=== PATIENT | female | born 1975 | race Hispanic/Latino ===

== ENCOUNTER 2016-03-31 23:31 | Inpatient (IN) | payer MEDICAID ==
[~2016-03-31] VITALS: Ht 157.5 cm; Wt 68.0 kg
[~2016-03-31 23:31] MED LIST: PNV1TABL57 PO
[2016-03-31] MEDS ORDERED: Lactated Ringer's 1,000 ML IV PRN ×2 (23:54→23:59)
[2016-03-31] MEDS ORDERED: fentaNYL-PF 50 mCg/mL 2 mL Inj IVPUSH PRN (23:55)
[2016-03-31] MEDS ORDERED: Sodium Chloride LOK Flush 10 mL Syringe IVFLUSH PRN (23:55)
[2016-03-31] MEDS ORDERED: Oxytocin 30 Units/500 mL LR 30 UNITS in IV Premix 1 EACH IV PRN (23:55)
[2016-03-31] MEDS ORDERED: Hemorrhage Kit, Post Partum XX ONE (23:55)
[2016-03-31] MEDS ORDERED: Methylergonovine 0.2 mg/mL Inj IM PRN (23:55)
[2016-03-31] MEDS ORDERED: Ondansetron 2 mg/mL 2 mL Inj IVPUSH PRN (23:55)
[2016-03-31] MEDS ORDERED: Oxytocin 10 Unit/mL Inj IM PRN (23:55)
[2016-03-31] MEDS ORDERED: Carboprost 250 mCg/mL Inj IM PRN (23:55)
--- NOTE | 2016-04-01 00:04 | PCM.HPOB ---
Subjective Date of Service: Mar 31, 2016 Referring Provider: Admitting Physician: Gigi Vigil MD Primary Care Physician: Mile Kohli MD Attending Physician: Gigi Vigil MD Chief Complaint Contractions and leaking fluid. History of Present History of Present Illness 40 Y/o at 41w 3d by GLORIA 03/21/2016 by LMP and consistent with first trimester US. Gush of fluid at 2300 (03/31/16) contractions regular . At presentation at triage room cervix 5-6 /90%. Problem list: 1. AMA, Echogenic cardiac focus, negative aneuploidy cfDNA 2. Growth 40%ile at 01/31/16 3. Desires sterilization, consent was signed 01/01/16 Past Medical History Obstetrical History: 3 without complications: 1996 , M 1999 , , F 2011 , M Gynecologic History: menarche at age 16 LMP 06/15/15 Medical History: Depression 2001 Hx Hep C test positive followed by negative test Surgical History: Gallstone /cholecystectomy 1998 Hx Tobacco Use: No Hx Alcohol Use: No Hx Substance Use: No Past Family History Family History non contributory Allergy Coded Allergies: No Known Allergies (Verified , 07/10/15) Labs/Diagnostics Additional Information A positive Varicella and Rubella immune RPR and HIV NR GC/CT negative Hep B SAg negative Hep C negative DM screen negative. GBS negative 02/19/16 OB Intrapartum Assessment/Plan Assessment 40 Y/o at 41w 3d by GLORIA 03/21/2016 by LMP and consistent with first trimester US. SROM at 2300 (03/31/16) Active labor Problem list: 1. AMA, Echogenic cardiac focus, negative aneuploidy cfDNA 2. Growth 40%ile at 01/31/16 3. Desires sterilization, consent was signed 01/01/16 Pain Management: admit with orders and labs. Chuy Benites MD Apr 01, 2016 00:04
[2016-04-01] MEDS ORDERED: LANOlin HPA 7 Gm Ointment TOPICAL PRN (00:05)
[2016-04-01] MEDS ORDERED: Hemorrhage Kit, Post Partum XX ONE ×2 (00:05)
[2016-04-01] MEDS ORDERED: Methylergonovine 0.2 mg/mL Inj IM PRN (00:05)
[2016-04-01] MEDS ORDERED: Witch Hazel-Glycerin Pads TOPICAL PRN (00:05)
[2016-04-01] MEDS ORDERED: Carboprost 250 mCg/mL Inj IM PRN (00:05)
[2016-04-01] MEDS ORDERED: Oxytocin 30 Units/500 mL LR 30 UNITS in IV Premix 1 EACH IV PRN (00:05)
[2016-04-01] MEDS ORDERED: Oxytocin 10 Unit/mL Inj IM PRN (00:05)
[2016-04-01] MEDS ORDERED: Benzocaine (Dermoplast) 20% 60 Gm Spray TOPICAL PRN (00:05)
[2016-04-01 00:06] LABS: Mean Corpuscular Volume 89.4 fL (81-100)
[2016-04-01 00:08] LABS: Mean Corpuscular Hemoglobin 31.3 pg (27.0-35.0)
[2016-04-01] MEDS: Lactated Ringer's 1,000 ML IV SCH (00:30)
[2016-04-01] MEDS: oxyCODONE-Acetamin 5-325 mg Tablet PO PRN ×5 (02:37→22:24)
--- NOTE | 2016-04-01 05:14 | OP ---
[address] [address] OPERATIVE REPORT PATIENT: STERLING MEDINA : 1975 MR#: [id number] ADMIT: 03/31/2016 JOB ID: [id number] DATE OF DELIVERY: 04/01/2016 at 0041. The placenta delivered at 0050. DELIVERY NOTE: PREOPERATIVE DIAGNOSIS(ES): 1. Intrauterine at 41 weeks and 4 days, active labor. 2. Spontaneous rupture of membrane at 2300, March 31, 2016. 3. Multiparity desires sterilization. Consent signed January 01, 2016. 4. Advanced maternal age. POSTOPERATIVE DIAGNOSIS(ES): 1. Intrauterine at 41 weeks and 4 days, active labor. 2. Spontaneous rupture of membrane at 2300, March 31, 2016. 3. Multiparity desires sterilization. Consent signed January 01, 2016. 4. Advanced maternal age. PROCEDURE: Spontaneous vaginal delivery. SURGEON: Chuy Benites MD. OUTCOME: Female in cephalic presentation. Apgars 8 and 9 at one and five minutes respectively. Weight 3888 g, equivalent to 8 pounds 9 ounces. Placenta delivered intact with a three-vessel cord. DESCRIPTION OF PROCEDURE: This is 40 years old 5, para 3-0-1-3 presented at 41 weeks and 3 days on March 31, 2016 with the spontaneous rupture of membranes at 2300. The patient presented with contractions that started at the same time of membrane rupture. At presentation in triage room the patient was grossly ruptured. The cervix was 5-6 cm dilated and 90% effaced. She progressed in labor, to be found completely dilated at 0029 on April 01, 2016 with strong urge to push. The patient pushed effectively to deliver via spontaneous vaginal delivery over intact perineum under no anesthesia. Delivered a female in cephalic presentation with no nuchal cord. The head delivered followed by the shoulders without difficulty. The was placed on the maternal abdomen. Delayed cord clamp was performed. Cord blood was obtained for blood typing. The placenta delivered spontaneously intact with three-vessel cord. Fundal massage was performed and Pitocin was started. Estimated blood loss 250 mL. Perineum was examined with no lacerations. All instrument needles and sponge counts were correct x2. and mother recovering in the delivery room. I, Chuy Benites, was present and scrubbed for the entire procedure. DEANA
[2016-04-01] MEDS: Ascorbic Acid 500 mg Tablet PO SCH ×3 (08:00→19:28)
[2016-04-02] MEDS: oxyCODONE-Acetamin 5-325 mg Tablet PO PRN ×4 (04:14→20:27)
[2016-04-02] MEDS ORDERED: Bupivacaine-MPF 0.25%/EPI 30 mL Inj ONE (07:35)
[2016-04-02] MEDS ORDERED: Sodium Citrate-Citric Acid 15 mL Solution ONE (07:37)
[2016-04-02] MEDS: Lactated Ringer's 1,000 ML IV SCH ×3 (07:47→16:01)
[2016-04-02] MEDS ORDERED: Atropine 0.4 mg/mL Inj IV PRN (07:50)
[2016-04-02] MEDS ORDERED: EPHEDrine Sulfate 50 mg/mL Inj IVPUSH PRN (07:50)
[2016-04-02] MEDS ORDERED: fentaNYL-PF 50 mCg/mL 2 mL Inj IVPUSH PRN (07:50)
--- NOTE | 2016-04-02 09:13 | PCM.DIOB ---
Obstetrical Disch Instruction Date of Service: Apr 02, 2016 Dates of Hospitalization Date of Hospital Admission Mar 31, 2016 at 23:35 Providers Admitting Physician: Gigi Vigil MD Primary Care Physician: Mile Kohli MD Attending Physician: Gigi Vigil MD Diet Discharge Diet: No restrictions Activity Discharge Activity-General: Pelvic Rest for 6 weeks, No lifting >10 pounds for 4-6 weeks Dressing and Incisional Care Hygiene: NO bathtub, hot tub or whirlpool Additional Instructions Discharge Instructions Please call with signs or symptoms of infection, severe pain, temperature greater than 100.5 degrees, worsening abdominal pain, fevers and chills, heavy vaginal bleeding filling more than a pad per hour. Follow Up Plan Follow-up appointment: Weeks (6) Call your provider for: Fever or Chills, Shortness of breath, Heavy vaginal bleeding, Red painful breasts Shruthi Sheldon MD Apr 02, 2016 09:13
[2016-04-02] MEDS ORDERED: IBUP-1827 PO (09:25)
[2016-04-02] MEDS ORDERED: DOCU-41 PO (09:25)
[2016-04-02] MEDS ORDERED: OXYC1TAB24 PO (09:25)
--- NOTE | 2016-04-02 09:50 | OP ---
[address] [address] OPERATIVE REPORT PATIENT: STERLING MEDINA : 1975 MR#: [id number] ADMIT: 03/31/2016 JOB ID: [id number] DATE OF SURGERY: 04/02/2016 PREOPERATIVE DIAGNOSIS(ES): Recent status desiring permanent sterilization. POSTOPERATIVE DIAGNOSIS(ES): Recent status desiring permanent sterilization. PROCEDURE PERFORMED: bilateral tubal ligation. SURGEON: Shruthi Sheldon MD. ANESTHESIA: Spinal. ESTIMATED BLOOD LOSS: 20 cc. FLUID REPLACEMENT: 800 cc of crystalloid. FINDINGS: Postsurgical changes on her left fallopian tube from prior ectopic . Normal appearing right fallopian tube. Dilated bowel. COMPLICATIONS: None apparent. INDICATIONS: This is a 40-year-old G 5, P 3-0-1-3 female who presented to labor and delivery in labor on April 01, 2016 with an EDC of March 21, 2016. was complicated by advanced maternal age, echogenic intracardiac focus and undesired fertility. She went on to deliver a live born female infant on April 01, 2016 and requested a sterilization on day #1. The risks, benefits, alternatives were discussed with her beforehand. She had previously signed her [address] [facility] consent in our clinic to actually proceed. DESCRIPTION OF PROCEDURE: The patient was taken to the operating room. She was placed in the dorsal supine position. She was prepped and draped in the usual sterile fashion. Under excellent spinal anesthesia, the laparotomy incision was made infraumbilically approximately 3 cm in diameter. This was brought down to the level of the fascia. The fascia was then incised in the midline and extended bluntly. She was noted to have a moderate amount of dilated bowel. The patient was then placed in Trendelenburg position and a moist lap was used to help retract the bowel. The visualization was noted to still be difficult. After looking at her left fallopian tube, it was thought that there was potentially a fallopian tube remnant despite a history of an ectopic on this side, and we then turned to the right fallopian tube. The patient was airplaned to the left. Her right fallopian tube was grasped with Azusa clamp. It was undermined using a Nahomi clamp and suture ligated with 0 plain gut. The tubal segment was then excised and sent to Pathology. The tubal stump did slip out from its suture and there was noted to be oozing from this site. So electrocautery was used to help achieve hemostasis. There was noted to be continued oozing despite this, and so the fallopian tube remnant was then grasped with a Nahomi clamp and was run with 0-Vicryl. Good hemostasis was noted following this. Attention was then turned to the left fallopian tube where it was grasped with a Azusa clamp and walked out to the fimbria and it was noted to have an intact portion segment with concern that if not removed she could conceive in the future. So this was elevated with a Azusa clamp, undermined with the Nahomi clamp and tied off with 0 plain gut suture. There was a minimal amount of oozing from this side and cautery was used to achieve hemostasis. The left portion of the fallopian tube was also sent off to Pathology. Good hemostasis was noted. Attention was then turned back to the right side to ensure that hemostasis was achieved and it was noted to be hemostatic. There was noted to be an area of erythema on the dilated bowel which was inspected closely and noted to be free of any obvious injury. The laps were then removed from the abdomen. The fascia was closed with a running nonlocking stitch of 0-Vicryl. The skin was closed with 4-0 Vicryl. Dermabond was placed on top of this. The patient tolerated the procedure well. Recovered in labor and delivery. All sponge, needle and instrument counts were correct.
[2016-04-02 10:24] LABS: Mean Corpuscular Hemoglobin 30.6 pg (27.0-35.0); Mean Corpuscular Volume 92.8 fL (81-100)
--- NOTE | 2016-04-02 10:58 | PCM.ANEP2 ---
Post Anesthesia Evaluation ASA/CMS Post Anesthesia VS in Patient's Normal Range?: Yes Resp Stable; Airway Patent?: Yes CV Function & Hydration Stable: Yes Mental Status Recovered?: Yes Pain control Satisfactory?: Yes N/V Control Satisfactory?: Yes Faraz Khanna MD Apr 02, 2016 10:58
--- NOTE | 2016-04-02 10:58 | PCM.HPANE ---
Patient Data Surgeon Admitting Provider:Gigi Vigil MD Attending Provider:Gigi Vigil MD Primary Care Physician:Mile Kohli MD Other Provider:Arnie Lugo Anesthesia Reason for Visit Active Labor ACTIVE LABOR Ht/WT & BMI Body Mass Index Allergies Coded Allergies: No Known Allergies (Verified , 07/10/15) Past Anesthesia History Anesthesia History: Denies:: Anesthesia Reactions Diabetes History Hx Diabetes?: No MRSA MRSA: No Medications Active Scripts oxyCODONE-Acetaminophen 5-325 mg 1 Each Tablet1-2 Tab PO Q4H PRN For Pain #15 TABLET Prov:Shruthi Sheldon MD 04/02/16 Ibuprofen 600 Mg [id number] Mg PO Q6H PRN For Mild Pain #60 TABLET Prov:Shruthi Sheldon MD 04/02/16 Docusate Sodium (Colace)100 Mg [id number] Mg PO DAILY #60 CAPSULE Prov:Shruthi Sheldon MD 04/02/16 Reported Medications PNV CMB#95/FERROUS FUMARATE/FA-Expunged Drug, (-Expunged Drug, Do Not Renew!)1 Each Tablet1 Each PO DAILY 11/17/11 History History of ENT Problems?: No Hx Neurologic Problems?: No Hx of GI Problems?: No Hx of Problems?: No Female Hx: Denies:: Endometriosis Pelvic Inflammatory Hx of Psycho/Social Problems?: No Hx Surgeries?: Yes (ETELVINA 4YRS AGO) Hx Any Other Health Problems?: No Other History: Positive for:: Hospitalization Denies:: Cancer Thyroid Disease History Blood Transfusions: Denies:: Blood Transfuse Reaction Blood Transfusions Hx Diabetes: No Hx Alcohol Use: NoHx Substance Use: No Smoking Status: Unknown if Ever Smoker Have You Smoked inLast 12 mo: No Stop/Bang Risk Assessment Category Category 1A: Patient has history of documented sleep apnea, and HAS NOT received any narcotic, sedative or anesthesia administration during this stay. Category 1B: Patient has history of documented sleep apnea, and HAS received any narcotic , sedative or anesthesia administration during this stay Category 2: Patient has SUSPECTED Obstructive Sleep Apnea, and HAS received any narcotic , sedative or anesthesia administration during this stay. Category 3: Patient has SUSPECTED Obstructive Sleep Apnea and HAS NOT received narcotic, sedative or anesthesia administration during this stay. Category 4: Outpatient in Procedural Areas with known sleep apnea or who screen positive for High Risk via the STOP/BANG questionnaire. Exam Exam General Appearance: Alert, Oriented X3, Cooperative, No Acute Distress HEENT/AIRWAY: MP 2, Neck Movement (FROM), Mouth Opening (3 FBMO) Lungs: Clear to Auscultation, Normal Air Movement Heart: Exam Unremarkable, Regular Rate/Rhythm, No Murmurs/Rubs/Gallops Meds/Labs/Diagnostics Admission Meds Current Medications Docusate Sodium (Colace) 100 mg DAILY PO Last administered on 04/01/16 11:09; Start 04/01/16 at 08:30 Ferrous Sulfate (Feosol) 325 mg BIDWM PO Last administered on 04/01/16 19:28; Start 04/01/16 at 08:00 Ascorbic Acid (Vitamin C) 500 mg BIDWM PO Last administered on 04/01/16 19:28 ; Start 04/01/16 at 08:00 Citric Acid/ Sodium Citrate (Bicitra) 30 ml STK-MED ONCE .ROUTE Last administered on 04/02/16 07:47; Start 04/02/16 at 07:37; Stop 04/02/16 at 07:40 ; Status DC Labs Test 04/01/16 00:00 White Blood Count 8.6th/mm3 (3.8-10.1) Red Blood Count 4.35mil/mm3 (3.90-5.20) Hemoglobin 13.6g/dL (12.0-15.6) Hematocrit 38.9% (35.0-46.0) Mean Corpuscular Volume 89.4fL (81-100) Mean Corpuscular Hemoglobin 31.3pg (27.0-35.0) Mean Corpuscular Hemoglobin Concent 35.0% (32.0-37.0) Red Cell Distribution Width 13.0% (12.3-15.4) Platelet Count 108bil/L (150-400) Plan Impression Patient chart reviewed, patient interviewed and anesthestic plan with risks, benefits, and alternatives discussed, and informed consent obtained. NPO Status: > 8hrs ASA Physical Status: ASA1 Normal Healthy Anesthetic Plan: SAB Bene/Risks/Altern/Consents: Yes HP Complete Prior to Induction: Yes Faraz Khanna MD Apr 02, 2016 07:49
--- NOTE | 2016-04-02 10:58 | PCM.ANEP1 ---
Lori tablePACU Phase 1 Assessment Date of Service: Mar 31, 2016 Anesthetic Administered: SAB Level of Alertness: Awake, talking STARKEY's with Equal Strength: No (SAB still on board) Pain: No Pain Scale Score: 7 Nausea or Vomiting: No Lungs: Clear to Auscultation, Normal Air Movement Dermatome Level: L3,4 (Thigh)
[2016-04-02 20:46] VITALS: BP 119/78; PULSE 58; RESP 16
[2016-04-02] MEDS ORDERED: fentaNYL-PF 50 mCg/mL 2 mL Inj ONE (21:21)
[2016-04-02] MEDS ORDERED: Bupiv-Spinal 0.75%/Dex 8.25% 2 mL Inj ONE (21:21)
[2016-04-02] MEDS ORDERED: EPHEDrine/NS 5 mg/mL 5 mL Syringe ONE (21:21)
[2016-04-02] MEDS ORDERED: Propofol 10,000 mCg/mL 20 mL Inj ONE (21:21)
--- NOTE | 2016-04-06 15:09 | PATH ---
SURGICAL PATHOLOGY Attending Physician:Shruthi Sheldon, CASE STATUS: Signed Out PATIENT NAME: STERLING MEDINA PID: [id number] : 1975 DATE COLLECTED:04/02/2016 00:00 SPECIMEN: 1: Fallopian Tube, Sterilization 2: Fallopian Tube, Sterilization CLINICAL HISTORY: BILATERAL TUBAL LIGATION 1).RIGHT FALLOPIAN TUBE 2).LEFT FALLOPIAN TUBE FINAL DIAGNOSIS: 1.RIGHT FALLOPIAN TUBE: SEGMENT OF FALLOPIAN TUBE WITH NO PATHOLOGIC ALTERATIONS. 2.LEFT FALLOPIAN TUBE: PORTION OF FALLOPIAN TUBE WITH DECIDUAL CHANGES CONSISTENT WITH . HISTORY OF PREVIOUS TUBAL NOTED. NO EVIDENCE OF MALIGNANCY. ICD10 CODE Z30.2 GROSS DESCRIPTION: The specimen is received in two formalin filled containers labeled with the patient's name. 1). The specimen is sublabeled "right fallopian tube" and consists of a 1.4 x 0.6 x 0.5 CM cylindrical shaped portion of tissue. The specimen is inked blue. The specimen is sectioned into 4 pieces and entirely submitted in cassette 1A. 2). The specimen is sublabeled "left fallopian tube" and consists of a dark avalos-brown cylinder-shaped portion of tissue which measures 1.6 x 0.6 x 0.5 CM. The specimen is inked blue the specimen is sectioned into 4 pieces and entirely submitted in cassette 2A. 04/02/2016 [facility] MICRO DESCRIPTION: See diagnosis. ICD-9 CODES: CPT CODES: 1: 53766 2: 52045 Electronically Signed Out Katherin Ramirez MD [facility] Pathology [facility] [address], [place] [address] Technical component performed at [facility], [address], [place], [address]
--- NOTE | 2016-04-22 15:11 | DIS ---
[address] [address] DISCHARGE SUMMARY PATIENT: STERLING MEDINA : 1975 MR#: [id number] ADMIT: 03/31/2016 JOB ID: [id number] DIS: 04/02/2016 ADMISSION DIAGNOSES: 1. A 41 week intrauterine . 2. Advanced paternal age. 3. Echogenic intracardiac foci. 4. Undesired fertility. DISCHARGE DIAGNOSES: 1. A 41 week intrauterine . 2. Advanced paternal age. 3. Echogenic intracardiac foci. 4. Undesired fertility. PROCEDURE PERFORMED: 1. Spontaneous vaginal delivery of a liveborn female infant, weighing 3888 g or 8 pounds 9 ounces, on April 01, 2016. 2. tubal ligation. REASON FOR ADMISSION AND HOSPITAL COURSE: This is a 40-year-old, G5, P 3-0-1-3 female who presented at 41 plus 3 weeks gestation complaining of spontaneous rupture of membranes. She was checked and noted to be ruptured and 6 cm dilated, so was admitted in active labor. Her was complicated by advanced maternal age, echogenic intracardiac focus and undesired fertility. She went on to deliver a spontaneous liveborn female after a spontaneous vaginal delivery in the political researcher hours of the . On day #1 on the , the patient then underwent a tubal ligation that was uncomplicated. Please see operative reports for both the delivery and the tubal ligation for any details regarding these. On day #1, she was meeting all goals including ambulating well on her own, tolerating a regular diet, voiding without difficulty. Her pain was well controlled, and at this point in time, she was deemed stable for discharge. INSTRUCTIONS AT DISCHARGE: The patient was advised to remain on pelvic rest for six weeks including no tampons, douching, or intercourse. She was asked to call for any signs or symptoms of infection including fever greater than 100.5 degrees, severe pain, malodorous vaginal or incisional discharge, or any heavy vaginal bleeding filling more than a pad per hour. MEDICATIONS AT DISCHARGE: Included: 1. Percocet 5/325, 1-2 tabs p.o. q.4 h. p.r.n. pain. 2. Ibuprofen 800 mg p.o. t.i.d. 3. She was asked to continue her vitamins as prescribed. She was deemed stable for discharge on day #1, after recovering from her tubal ligation. DEANA
== END 2016-04-02 21:22 | disposition home or self-care (01) | DRG 541 ==
LOC: FBCO 23:31 → FBC 23:35
PROVIDERS: ADMIT Obstetrics & Gynecology; ATTEND Obstetrics & Gynecology
PROC: 10E0XZZ Delivery of Products of Conception, External Approach (ICD-10-PCS; principal; 2016-04-01)
PROC: 0UB74ZZ Excision of Bilateral Fallopian Tubes, Percutaneous Endoscopic Approach (ICD-10-PCS; 2016-04-02)
DX: O80 Encounter for full-term uncomplicated delivery (principal); Z30.2 Encounter for sterilization; Z3A.41 41 weeks gestation of pregnancy; Z37.0 Single live birth